=== PATIENT | female | born 1985 | race Hispanic/Latino ===

== ENCOUNTER 2022-10-28 18:12 | Emergency (ER) | payer OTHER ==
[~2022-10-28] VITALS: Ht 165.1 cm; Wt 72.6 kg
[2022-10-28] MEDS ORDERED: NAPROXEN 250 MG TAB PO SCH (18:54)
[2022-10-28] MEDS ORDERED: KETOROLAC TROME10 MG PO (22:14)
[2022-10-29 05:37] VITALS: BP 129/84
== END 2022-10-28 22:10 | disposition home or self-care (01) ==
LOC: ER 18:33
DX: S20.211A Contusion of right front wall of thorax, initial encounter (principal); W17.89XA Other fall from one level to another, initial encounter; Y92.89 Other specified places as the place of occurrence of the external cause
CPT/HCPCS: 71111; 81025